=== PATIENT | female | born 1985 | race Caucasian/White ===

== ENCOUNTER 2016-04-20 13:46 | Emergency (ER) | payer BC ==
[~2016-04-20] VITALS: Ht 167.6 cm; Wt 54.5 kg
[2016-04-20 14:00] VITALS: BP 109/71; PULSE 66; RESP 16; TEMP 98.8; O2SAT 99
[2016-04-20 14:27] LABS: BLOOD, URINE LARGE (NEG); GLUCOSE,URINE NEG (NEG); KETONE, URINE 40 mg/dL (NEG); NITRITE,URINE NEG (NEG)
[2016-04-20 14:31] LABS: METHOD OF COLLECTION CLEAN CATCH; URINE COLOR YELLOW (YELLW/STRAW); WBC, URINE 0-2 /hpf (0-5)
[2016-04-20 14:32] LABS: BACTERIA, URINE RARE /hpf; COMMENT (UR) CULT NOT INDICATED; CULTURE IF INDICATED CULT NOT INDICATED
[2016-04-20] MEDS ORDERED: ALPR.25 PO (14:58)
[2016-04-20] MEDS ORDERED: SUMA25TA2 PO (14:58)
[2016-04-20] MEDS ORDERED: SODIUM CHLOR 0.9% 1000 ML INJ 1,000 ML IV SCH (15:06)
[2016-04-20 15:10] VITALS: BP 104/58; PULSE 69; RESP 18; O2SAT 99
[2016-04-20] MEDS ORDERED: SODIUM CHLORIDE 0.9% FLUSH 5 ML FLUSH IVF PRN (15:15)
[2016-04-20] MEDS ORDERED: ONDANSETRON HCL 4 MG/2 ML VIAL IVP ONE (15:15)
[2016-04-20] MEDS ORDERED: KETOROLAC TROMETHAMINE 30 MG/ML (IVP) VIAL IVP ONE (15:15)
--- NOTE | 2016-04-20 15:15 | PD ---
HPI Chief Complaint: Abdominal Pain Time Seen by Provider: 14:54 Travel History International Travel<30 days: No Contact w/Intl Traveler<30days: No Traveled to known affect area: No History of Present Illness HPI Patient is a 30-year-old female who presents to the emergency room for evaluation of right lower quadrant abdominal pain and possible appendicitis. Patient reports that for the past 2 days, she began to feel nauseous and have abdominal pain. Patient reports that she got her period yesterday, and treatment of her symptoms to menstrual cramps. She reports that she went to work today, began having increased pain to her right lower quadrant. Patient reports that she has been feeling nauseous and did vomit. Patient reports that pain is getting worse over the lower quadrant and everyone at work told her to the hospital for evaluation of possible appendicitis. Patient did to the urgent care center today, reports that she was given a dose of Zofran and was told to go to the emergency room for CAT scan of her abdomen pelvis for evaluation of possible appendicitis. Patient does have history of ovarian cysts , patient reports that she had a right-sided oophorectomy secondary to a large cyst with ovarian torsion in the past. PFSH Past Medical History Anxiety: Yes Thyroid Disease: Yes (Hyper-) Tetanus Vaccination: Unknown Influenza Vaccination: No ?: Not LMP: 04/19/16 Past Surgical History Abdominal Surgery: Yes (Umb. hernia w/ mesh) Section: Yes Cholecystectomy: Yes Gynecologic Surgery: Yes (Rt. ovary and Fallopian tube removed ) Tonsillectomy: Yes (& adenoids) Other Surgery: Yes (Bunionectomy, abdominoplasty ) Social History Alcohol Use: Yes (Socially) Tobacco Use: Yes (1/2 PPD) Substance Use: Yes (Marijuana occ.) Allergies-Medications (Allergen,Severity, Reaction): Coded Allergies: Adhesives (Verified Allergy, Unknown, 04/20/16) Latex (Verified Allergy, Unknown, 04/20/16) Morphine (Verified Allergy, Unknown, 04/20/16) Reported Meds & Prescriptions Reported Meds & Active Scripts Active Reported Sumatriptan (Sumatriptan Succinate) 25 Mg Tab 25 Mg PO ONCE PRN If a satisfactory response has not been obtained at 2 hours, a second dose may be administered Xanax (Alprazolam) 0.25 Mg Tab 0.25 Mg PO BID PRN Review of Systems General / Constitutional: No: Fever Eyes: No: Visual changes HENT: No: Headaches Cardiovascular: No: Chest Pain or Discomfort Respiratory: No: Shortness of Breath Gastrointestinal: Positive: Nausea, Vomiting, Abdominal Pain Genitourinary: No: Dysuria Musculoskeletal: No: Pain Skin: No Rash Neurologic: No: Weakness Psychiatric: No: Depression Endocrine: No: Polydipsia Hematologic/Lymphatic: No: Easy Bruising Physical Exam Narrative GENERAL: Moderate distress SKIN: Warm and dry. HEAD: Atraumatic. Normocephalic. EYES: Pupils equal and round. No scleral icterus. No injection or drainage. ENT: No nasal bleeding or discharge. Mucous membranes pink and moist. NECK: Trachea midline. No JVD. CARDIOVASCULAR: Regular rate and rhythm. No murmur appreciated. RESPIRATORY: No accessory muscle use. Clear to auscultation. Breath sounds equal bilaterally. GASTROINTESTINAL: Abdomen soft, increased tenderness to the right lower quadrant with guarding on exam MUSCULOSKELETAL: No obvious deformities. No clubbing. No cyanosis. No edema. NEUROLOGICAL: Awake and alert. No obvious cranial nerve deficits. Motor grossly within normal limits. Normal speech. PSYCHIATRIC: Appropriate mood and affect; insight and judgment normal. Data Data Last Documented VS Vital Signs Date Time Temp Pulse Resp B/P Pulse Ox O2 Delivery O2 Flow Rate FiO2 04/20/16 14:00 98.8 66 16 109/71 99 Orders Urinalysis - C+S If Indicated (04/20/16 14:12) Complete Blood Count With Diff (04/20/16 15:06) Comprehensive Metabolic Panel (04/20/16 15:06) Prothrombin Time / Inr (Pt) (04/20/16 15:06) Labs Laboratory Tests Test 04/20/16 14:00 Urine Collection Type CLEAN CATCH Urine Color YELLOW Urine Turbidity CLEAR Urine pH 6.0 Urine Specific [place] 1.027 Urine Protein 30 mg/dL Urine Glucose (UA) NEG mg/dL Urine Ketones 40 mg/dL Urine Occult Blood LARGE Urine Nitrite NEG Urine Bilirubin NEG Urine Leukocyte Esterase NEG Urine RBC 20-24 /hpf Urine WBC 0-2 /hpf Urine Squamous Epithelial 6-8 /hpf Cells Urine Bacteria RARE /hpf Microscopic Urinalysis Comment CULT NOT INDICATED Urine Collection Time 14:00Y [facility] Medical Decision Making Medical Screen Exam Complete: Yes Emergency Medical Condition: Yes Interpretation(s) Vital Signs Date Time Temp Pulse Resp B/P Pulse Ox O2 Delivery O2 Flow Rate FiO2 04/20/16 14:00 98.8 66 16 109/71 99 Differential Diagnosis gastroenteritis, appendicitis, ovarian cyst, menstrual cramps Narrative Course Patient is a 30-year-old female who presents to emergency room for evaluation of possible appendicitis. Patient has been having increased right lower quadrant pain for the past few days, reports increased nausea with episodes of vomiting. She was seen in the urgent care earlier today and was given Zofran told to go to the emergency room for CAT scan of her abdomen pelvis for evaluation of possible appendicitis. On exam, patient does have increased tenderness to her right lower quadrant, there is concerned for possible appendicitis. CT of the abdomen and pelvis with IV contrast ordered for further evaluation of symptoms. Ovarian torsion unlikely as patient had history of right-sided oophorectomy in the past. Maggi Nesbitt DO Apr 20, 2016 15:15
[2016-04-20] MEDS ORDERED: DIATRIZOATE MEGLUM/DIATRIZOATE SOD 9 ML CUP ONE (15:16)
[2016-04-20 15:25] LABS: AUTOMATED NEUTROPHIL # 5.4 TH/MM3 (1.8-7.7); BASOPHIL % 0.7 % (0.0-2.0); EOSINOPHIL # 0.1 TH/MM3 (0-0.4); EOSINOPHIL % 1.1 % (0.0-4.0); HEMATOCRIT 38.8 % (35.0-46.0); HEMO FLAGS DIFF FINAL; LYMPH % 12.7 % (9.0-44.0); LYMPHOCYTE # 0.9 TH/MM3 (1.0-4.8); MEAN CELL VOLUME 88.6 FL (80.0-100.0); MEAN CORPUSCULAR HEMOGLOBIN 30.7 PG (27.0-34.0); MEAN CORPUSCULAR HGB CONC 34.7 % (32.0-36.0); NEUT % 78.5 % (16.0-70.0); PLATELET COUNT 176 TH/MM3 (150-450); RED BLOOD COUNT 4.38 MIL/MM3 (4.00-5.30); RED CELL DISTRIBUTION WIDTH 11.9 % (11.6-17.2); WHITE BLOOD COUNT 6.9 TH/MM3 (4.0-11.0)
[2016-04-20 15:37] LABS: CHLORIDE 108 MEQ/L (98-107); POTASSIUM 3.3 MEQ/L (3.5-5.1); SODIUM (NA) 143 MEQ/L (136-145)
[2016-04-20 15:41] LABS: ANION GAP 8 MEQ/L (5-15); APTT (PATIENT) 30.7 SEC (24.3-30.1); BLOOD UREA NITROGEN 6 MG/DL (7-18); INTERNATIONAL NORMALIZED RATIO 1.1 RATIO; PROTHROMBIN TIME - PATIENT 11.7 SEC (9.8-11.6)
[2016-04-20 15:44] LABS: ALT (GPT) 15 U/L (10-53); AST (GOT) 9 U/L (15-37); GLOMERULAR FILTRATION RATE 158 ML/MIN (>89)
[2016-04-20 15:45] LABS: TOTAL BILIRUBIN ADULT 1.2 MG/DL (0.2-1.0)
[2016-04-20 15:47] LABS: ALKALINE PHOSPHATASE 40 U/L (45-117)
[2016-04-20 16:45] VITALS: BP 113/63; PULSE 89; RESP 16; O2SAT 99
[2016-04-20] MEDS ORDERED: IOHEXOL 350 MG/ML 10 ML VIAL (for RAD DIAG) IV ONE (17:25)
--- NOTE | 2016-04-20 17:34 | RADHPO ---
EXAM DATE/TIME: 04/20/2016 17:18 [facility] COMPARISON: No previous studies available for comparison. INDICATIONS : Abdominal pain with nausea for three days. IV CONTRAST: 70 cc Omnipaque 350 (iohexol) IV ORAL CONTRAST: Prescribed oral contrast ingested. RADIATION DOSE: 4.77 CTDIvol (mGy) MEDICAL HISTORY : Hernia, umbilical. SURGICAL HISTORY : Umbilical hernia repair. section.Hip surgery. Salpingo-oopherectomy, right. ENCOUNTER: Initial ACUITY: 3 days PAIN SCALE: 7/10 LOCATION: Bilateral abdomen TECHNIQUE: Volumetric scanning of the abdomen and pelvis was performed. Using automated exposure control and ad justment of the mA and/or kV according to patient size, radiation dose was kept as low as reasonably achievable to obtain optimal diagnostic quality images. FINDINGS: LOWER LUNGS: The visualized lower lungs are clear. LIVER: Homogeneous density without lesion. There is no dilation of the biliary tree. Status post cholecyste ctomy with multiple surgical clips in the tigre hepatis region. SPLEEN: Normal size without lesion. PANCREAS: Within normal limits. KIDNEYS: Normal in size and shape. There is no mass, stone or hydronephrosis. ADRENAL GLANDS: Within normal limits. VASCULAR: There is no aortic aneurysm. BOWEL/MESENTERY: The stomach, small bowel, and colon demonstrate no acute abnormality. There is no free intraperitone al air or fluid. ABDOMINAL WALL: Within normal limits. RETROPERITONEUM: There is no lymphadenopathy. BL unremarkable nonobstructive bowel gas pattern. ADDER: No wall thickening or mass. REPRODUCTIVE: The uterus and adnexa regions appear unremarkable. Tampon is noted and there is a small amount of flu id in the cul-de-sac.. INGUINAL: There is no lymphadenopathy or hernia. MUSCULOSKELETAL: Within normal limits for patient age. CONCLUSION: 1. Unremarkable bowel gas pattern. 2. Status post cholecystectomy. 3. Free fluid in the cul-de-sac which is a nonspecific finding in a female patient of this age. This may be physiologic. Jean Carlos Burleson MD on April 20, 2016 at 17:29 Board Certified Radiologist. This report was verified electronically.
[2016-04-20] MEDS ORDERED: ZOFR4TAB3 SL (17:57)
[2016-04-20] MEDS ORDERED: DICY10 PO (17:57)
[2016-04-20] MEDS ORDERED: ULTR50TA5 PO (17:57)
--- NOTE | 2016-04-20 17:58 | PD ---
Data Data Last Documented VS Vital Signs Date Time Temp Pulse Resp B/P Pulse Ox O2 Delivery O2 Flow Rate FiO2 04/20/16 18:25 80 16 106/63 98 Room Air 04/20/16 14:00 98.8 Orders Urinalysis - C+S If Indicated (04/20/16 14:12) Complete Blood Count With Diff (04/20/16 15:06) Comprehensive Metabolic Panel (04/20/16 15:06) Prothrombin Time / Inr (Pt) (04/20/16 15:06) Act Partial Throm Time (Ptt) (04/20/16 15:06) Ct Abd/Pel W Iv Contrast(Rout) (04/20/16 15:06) Iv Access Insert/Monitor (04/20/16 15:06) Ondansetron Inj (Zofran Inj) (04/20/16 15:15) Sodium Chlor 0.9% 1000 Ml Inj (Ns 1000 M (04/20/16 15:06) Sodium Chloride 0.9% Flush (Ns Flush) (04/20/16 15:15) Ketorolac Inj (Toradol Inj) (04/20/16 15:15) Ed Urine Pregnancytest Poc (04/20/16 15:06) Oral Contrast - Adult (04/20/16 15:10) Diatrizoate Liq ( Gastroview Liq) (04/20/16 15:16) Iohexol 350 Inj (Omnipaque 350 Inj) (04/20/16 17:25) Oxycodone-Acetamin 5-325 Mg (Percocet (04/20/16 18:00) Labs Laboratory Tests Test 04/20/16 04/20/16 14:00 15:10 Urine Collection Type CLEAN CATCH Urine Color YELLOW Urine Turbidity CLEAR Urine pH 6.0 Urine Specific [place] 1.027 Urine Protein 30 mg/dL Urine Glucose (UA) NEG mg/dL Urine Ketones 40 mg/dL Urine Occult Blood LARGE Urine Nitrite NEG Urine Bilirubin NEG Urine Leukocyte Esterase NEG Urine RBC 20-24 /hpf Urine WBC 0-2 /hpf Urine Squamous Epithelial 6-8 /hpf Cells Urine Bacteria RARE /hpf Microscopic Urinalysis Comment CULT NOT INDICATED Urine Collection Time 14:00Y White Blood Count 6.9 TH/MM3 Red Blood Count 4.38 MIL/MM3 Hemoglobin 13.4 GM/DL Hematocrit 38.8 % Mean Corpuscular Volume 88.6 FL Mean Corpuscular Hemoglobin 30.7 PG Mean Corpuscular Hemoglobin 34.7 % Concent Red Cell Distribution Width 11.9 % Platelet Count 176 TH/MM3 Mean Platelet Volume 8.5 FL Neutrophils (%) (Auto) 78.5 % Lymphocytes (%) (Auto) 12.7 % Monocytes (%) (Auto) 7.0 % Eosinophils (%) (Auto) 1.1 % Basophils (%) (Auto) 0.7 % Neutrophils # (Auto) 5.4 TH/MM3 Lymphocytes # (Auto) 0.9 TH/MM3 Monocytes # (Auto) 0.5 TH/MM3 Eosinophils # (Auto) 0.1 TH/MM3 Basophils # (Auto) 0.0 TH/MM3 CBC Comment DIFF FINAL Differential Comment Prothrombin Time 11.7 SEC Prothromb Time International 1.1 RATIO Ratio Activated Partial 30.7 SEC Thromboplast Time Sodium Level 143 MEQ/L Potassium Level 3.3 MEQ/L Chloride Level 108 MEQ/L Carbon Dioxide Level 27.0 MEQ/L Anion Gap 8 MEQ/L Blood Urea Nitrogen 6 MG/DL Creatinine 0.46 MG/DL Estimat Glomerular Filtration 158 ML/MIN Rate Random Glucose 76 MG/DL Calcium Level 8.6 MG/DL Total Bilirubin 1.2 MG/DL Aspartate Amino Transf 9 U/L (AST/SGOT) Alanine Aminotransferase 15 U/L (ALT/SGPT) Alkaline Phosphatase 40 U/L Total Protein 6.9 GM/DL Albumin 4.2 GM/DL MDM Supervised Visit with [facility]: No Narrative Course Patient care assumed from Dr. Nesbitt at 1900. Plan was to follow up CT and disposition appropriately. On my exam, abdomen is benign, soft and non-tender. Patient has had oophorectomy on right. CT negative for acute pathology. Discussed with patient. Her pain is faily well under control but requests something more. Discussed need for follow up with PCP and [employer]CH[employer] UNDERWRITING CONSULTANT and she is agreeable. Offered [employer]CH[employer] UNDERWRITING CONSULTANT exam and she declines. Stable for discharge at this time. Discussed return to ed criteria. Diagnosis Primary Impression: Abdominal pain Qualified Code: R10.30 - Lower abdominal pain Additional Impression: Diarrhea Referrals: Astrid Castaneda MD Med/Other Pt SpecificInfo: Prescription(s) given Scripts Ondansetron Odt (Zofran Odt)4 Mg Tab4 Mg SL Q6HR PRN (Nausea/Vomiting) #30 TAB Ref 0 Prov:Sunny Hughes MD 04/20/16 Dicyclomine (Bentyl)10 Mg Cap10 Mg PO TID PRN (Bowel Management) #20 CAP Ref 0 Prov:Sunny Hughes MD 04/20/16 Tramadol (Ultram)50 Mg Tab50 Mg PO Q6H PRN (PAIN) #12 TAB Ref 0 Prov:Sunny Hughes MD 04/20/16 Disposition: 01 DISCHARGE HOME Condition: Stable Sunny Hughes MD Apr 20, 2016 17:58
[2016-04-20] MEDS ORDERED: oxyCODONE/ACETAMINOPHEN 5 MG/325 MG TAB PO ONE (18:00)
[2016-04-20 18:25] VITALS: BP 106/63; PULSE 80; RESP 16; O2SAT 98
== END 2016-04-20 18:30 | disposition home or self-care (01) ==
LOC: PHED 13:46 → PHEFT 18:30
DX: R10.31 Right lower quadrant pain (principal)
CPT/HCPCS: 74177; 80053; 81001; 84703; 85025; 85610; 85730; 96361; 96374; 96375; 99284; J1885; J2405; J7030; Q9963; Q9967

== ENCOUNTER 2017-01-14 21:54 | Emergency (ER) | payer BC ==
[~2017-01-14] VITALS: Ht 167.6 cm; Wt 55.0 kg
[~2017-01-14 21:54] MED LIST: ALPR.25 PO; DICY10 PO; SUMA25TA2 PO; TRAM50 PO; ZOFR4TAB3 SL
[2017-01-14 21:56] VITALS: BP 123/73; PULSE 70; RESP 16; TEMP 98.4; O2SAT 100
[2017-01-14] MEDS ORDERED: KETOROLAC TROMETHAMINE 60 MG/2 ML (IM) VIAL IM ONE (23:00)
[2017-01-14] MEDS ORDERED: DIAZEPAM 5 MG TAB PO ONE (23:00)
[2017-01-14] MEDS ORDERED: ONDANSETRON ODT 4 MG TAB PO ONE (23:00)
[2017-01-14] MEDS ORDERED: DIAZ5 PO (23:04)
[2017-01-14] MEDS ORDERED: NAPR500T2 PO (23:04)
--- NOTE | 2017-01-14 23:04 | PD ---
HPI Chief Complaint: Back/ Neck Pain or Injury Time Seen by Provider: 22:35 Travel History International Travel<30 days: No Contact w/Intl Traveler<30days: No Traveled to known affect area: No History of Present Illness HPI So 31 year-old woman presents to the emergency department complaining of mid back pain as her about 8:30 tonight. She was at [facility] retrosternal lift a heavy box afterward she developed right sided mid back pain radiating into the right flank. She has started some nausea vomiting with this. She is a history of scoliosis and has rare intermittent back pain in the past. No history of kidney stones. She otherwise had been feeling generally well and healthy. History Past Medical History Narrative Medical Anxiety Thyroid disorder Possible endometriosis Scoliosis Tetanus Vaccination: Unknown Influenza Vaccination: No LMP: 01/12/2017 Social History Alcohol Use: Yes (Socially) Tobacco Use: No Allergies-Medications (Allergen,Severity, Reaction): Coded Allergies: adhesive (Unverified Allergy, Unknown, 10/18/16) latex (Unverified Allergy, Unknown, 10/18/16) morphine (Unverified Allergy, Unknown, 10/18/16) Reported Meds & Prescriptions Reported Meds & Active Scripts Active Naproxen 500 Mg Tab 500 Mg PO BID 7 Days Valium (Diazepam) 5 Mg Tab 5 Mg PO TID PRN Zofran Odt (Ondansetron Odt) 4 Mg Tab 4 Mg SL Q6HR PRN Bentyl (Dicyclomine HCl) 10 Mg Cap 10 Mg PO TID PRN Ultram (Tramadol HCl) 50 Mg Tab 50 Mg PO Q6H PRN Reported Sumatriptan (Sumatriptan Succinate) 25 Mg Tab 25 Mg PO ONCE PRN If a satisfactory response has not been obtained at 2 hours, a second dose may be administered Xanax (Alprazolam) 0.25 Mg Tab 0.25 Mg PO BID PRN Review of Systems Except as stated in HPI: all other systems reviewed are Neg Physical Exam Narrative GENERAL: Well-appearing 31 year-old woman, little bit uncomfortable but nontoxic. SKIN: Focused skin assessment warm/dry. HEAD: Atraumatic. Normocephalic. CARDIOVASCULAR: Regular rate and rhythm. No murmur appreciated. RESPIRATORY: No accessory muscle use. Clear to auscultation. Breath sounds equal bilaterally. GASTROINTESTINAL: Abdomen soft, non-tender, nondistended. Hepatic and splenic margins not palpable. MUSCULOSKELETAL: No obvious deformities. No midline back tenderness. A little bit of mid thoracic right sided paraspinous muscle tenderness. NEUROLOGICAL: Awake and alert. No obvious cranial nerve deficits. Motor grossly within normal limits. Normal speech. PSYCHIATRIC: Appropriate mood and affect; insight and judgment normal. Data Data Last Documented VS Vital Signs Date Time Temp Pulse Resp B/P (MAP) Pulse Ox O2 Delivery O2 Flow Rate FiO2 01/14/17 21:56 98.4 70 16 123/73 (90) 100 Room Air Orders Orders Chest, Pa & Lat (01/14/17 ) Ketorolac Inj (Toradol Inj) (01/14/17 23:00) Diazepam (Valium) (01/14/17 23:00) Ondansetron Odt (Zofran Odt) (01/14/17 23:00) [facility] Medical Decision Making Medical Screen Exam Complete: Yes Emergency Medical Condition: Yes Interpretation(s) Chest x-ray: Unremarkable. Differential Diagnosis Back strain or sprain, herniated disc, thoracic disease, other Narrative Course Medical decision-making 31 year-old woman with likely right sided paraspinous muscle strain or sprain. She looks well. She's had some nausea vomiting but symptoms seem clearly related to her lifting injury without other evidence supporting renal lithiasis. She is complaining of some shortness of breath and worsening pain with deep breathing. I think this is just from the chest wall we'll check chest x-ray, otherwise recommend supportive treatment with Zofran, Toradol, Valium for muscle spasm. Diagnosis Primary Impression: Back strain Additional Impression: Muscle spasm Additional Instructions: Take Naprosyn as prescribed. Use Valium as needed for muscle spasms. Use caution as it can cause drowsiness. Do not combine with other benzodiazepines such as Xanax. Return to the emergency department for any worsening back pain, or any other new or worsening symptoms. Med/Other Pt SpecificInfo: Prescription(s) given Scripts Naproxen (Naproxen) 500 Mg Tab 500 MG PO BID for 7 Days, #14 TAB 0 Refills Prov: Don Perez MD 01/14/17 Diazepam (Valium) 5 Mg Tab 5 MG PO TID Y for MUSCLE SPASM, #6 TAB 0 Refills Prov: Don Perez MD 01/14/17 Disposition: 01 DISCHARGE HOME Condition: Stable Don Perez MD Jan 14, 2017 23:04
--- NOTE | 2017-01-14 23:22 | RADRPT ---
EXAM DATE/TIME: 01/14/2017 23:04 [facility] COMPARISON: No previous studies available for comparison. INDICATIONS : Short of breath. MEDICAL HISTORY : Hyperthyroidism. Scoliosis. Endometriosis. SURGICAL HISTORY : Umbilical hernia repair. section.Hip surgery. Salpingo-oopherectomy, right. ENCOUNTER: Initial ACUITY: 1 day PAIN SCORE: 9/10 LOCATION: Right upper chest posterior. FINDINGS: The cardiac silhouette is enlarged in transverse diameter. The lungs are free of acute parenchymal op acity. No effusions are identified. There is mild scoliotic deformity convex to the right. CONCLUSION: 1. No acute cardiopulmonary disease. Wei Wilcox MD on January 14, 2017 at 23:20 Board Certified Radiologist. This report was verified electronically.
== END 2017-01-15 00:05 | disposition home or self-care (01) ==
LOC: NEPE 21:54
DX: S29.012A Strain of muscle and tendon of back wall of thorax, initial encounter (principal); M62.830 Muscle spasm of back; R11.2 Nausea with vomiting, unspecified; M41.9 Scoliosis, unspecified; F41.9 Anxiety disorder, unspecified; E07.9 Disorder of thyroid, unspecified; Z79.899 Other long term (current) drug therapy; X50.0XXA Overexertion from strenuous movement or load, initial encounter; Y92.512 Supermarket, store or market as the place of occurrence of the external cause
CPT/HCPCS: 71020; 84703; 96372; 99284; J1885